=== PATIENT | female | born 1925 | race African-American/Black ===

== ENCOUNTER → 2016-07-14 | Outpatient (CLI) | payer OTHER ==
[~2016-07-14] MED LIST: ANTIVERT25 MG PO; BRIMONIDINE TAR1 BO1 OPHTHALMIC; DALIRESP500 MCG PO; DIGOXIN250 MCG PO; DILTIAZEM 24HR240 M1 PO; ELIQUIS5 MG PO; FLONASE 0.05%50 MCG NASAL; MOBIC7.5 MG PO; OMEPRAZOLE 20 M20 M1 PO; PRAVACHOL40 MG PO; SINGULAIR 10 MG10 M1 PO; TRAMADOL 50 MG50 MG PO; XALATAN2.5 ML OPHTHALMIC
== END ==
LOC: RAD 15:26
DX: J44.9 Chronic obstructive pulmonary disease, unspecified (principal)